=== PATIENT | male | born 1965 | race Caucasian/White ===

== ENCOUNTER → 2017-03-02 | Outpatient (CLI) | payer OTHER ==
[~2017-03-02] MED LIST: FURO-85 PO; METH10TA2 PO; OXYC-57 PO; OXYC10SO PO; POLY335019 PO; SPIR25TA PO; Toprol XL PO; WARF2TAB PO
--- NOTE | 2017-03-02 14:50 | DIAGNOSTIC IMAGING REPORT ---
RIGHT KNEE 4 OR MORE CLINICAL HISTORY: RIGHT KNEE PAIN Right pain COMPARISON: None. DISCUSSION: Moderate degenerative change of the medial joint compartments bilaterally. This is more prominent on the right as compared to the left. Potential small subchondral defect right medial femoral condyle. Moderate osteophytic change throughout. No significant joint effusion. There is no evidence for soft tissue swelling. IMPRESSION: Degenerative change primarily of the medial right and to lesser extent medial left joint compartment. Moderate degenerative osteophytic change throughout Electronically signed by: Julio Cesar Hughes M.D. 03/02/2017 2:48 PM Dictated Date/Time: 03/02/2017 2:47 PM
== END | disposition home or self-care (01) ==
LOC: C.RDSM 14:39
PROVIDERS: ATTEND Physician Assistant
DX: M25.561 Pain in right knee (principal)

== ENCOUNTER → 2017-03-19 | Outpatient (CLI) | payer OTHER ==
[~2017-03-19] MED LIST changes: -OXYC-57 PO
--- NOTE | 2017-03-20 14:54 | ECHOCARDIOGRAM REPORT ---
*NOTICE TO RECEIVING [employer]Y This information is strictly Confidential and protected under [place] law. [place] law prohibits you from making any further disclosure of this information unless further disclosure is expressly permitted by the written consent of the person to whom it pertains or is authorized by law. A general authorization for the release of medical or other information is not sufficient for this purpose. Hospital accepts no responsibility if the information is made available to any other person, INCLUDING THE PATIENT. Interpretation Summary * Name: RALYN BOYD Study Date: 03/19/2017 03:13 PM BP: 116/71 mmHg * Patient Location: [facility] HR: 70 * : 1965 (M/d/yyyy) Gender: Male Height: 67 in * Age: 52 yrs Ethnicity: CA Weight: 210 lb * Ordering Physician: Dulce Mahtias * Referring Physician: Dulce Mathias PA-C * Performed By: Bonita Boyd RCS * * Reason For Study: PRE-OP / A-FIB * BSA: 2.1 m2 * -- Conclusions -- * Left ventricular systolic function is normal. * No regional wall motion abnormalities noted. * Ejection Fraction = 55-60%. * There is mild concentric left ventricular hypertrophy. * Diastolic dysfunction is suggested. * No significant valvular pathology. Procedure Details * A complete two-dimensional transthoracic echocardiogram was performed (2D, M-mode, Doppler and color flow Doppler). Left Ventricle * The left ventricle is normal in size. * There is mild concentric left ventricular hypertrophy. * Ejection Fraction = 55-60%. * Left ventricular systolic function is normal. * No regional wall motion abnormalities noted. Right Ventricle * The right ventricle is not well visualized. * The right ventricular systolic function is normal as assessed by tricuspid annular plane systolic excursion (TAPSE) (normal >1.5 cm). Atria * The left atrium is mildly dilated. * Borderline right atrial enlargement. * No ASD detected; PFO is not assessed. Mitral Valve * The mitral valve anatomy is normal. * There is no mitral valve stenosis. * Significant mitral regurgitation is absent. Tricuspid Valve * The tricuspid valve is not well visualized, but is grossly normal. * There is no tricuspid stenosis. * There is trace tricuspid regurgitation. Aortic Valve * The aortic valve is not well visualized. * The aortic valve opens well. * No hemodynamically significant valvular aortic stenosis. * No aortic regurgitation is present. Pulmonic Valve * The pulmonary valve is not well seen, but the Doppler examination is normal without significant regurgitation or stenosis. Great Vessels * Mild aortic root dilatation. * The pulmonary is not well visualized. Pericardium/Pleural * There is no pericardial effusion. Great Vessels * Normal inferior vena cava size and collapsability with sniff indicates a normal right atrial pressure of 3 mmHg Left Ventricular Diastolic Function * Diastolic dysfunction is suggested. MMode 2D Measurements and Calculations IVSd 1.3 cm IVSs 1.5 cm LVIDd 4.0 cm LVIDs 2.7 cm LVPWd 1.2 cm LVPWs 1.3 cm IVS/LVPW 1.0 FS 31.5 % EDV(Teich) 69.2 ml ESV(Teich) 27.7 ml EF(Teich) 60.0 % EDV(cubed) 63.1 ml ESV(cubed) 20.3 ml EF(cubed) 67.9 % % IVS thick 21.0 % % LVPW thick 6.9 % LV mass(C)d 172.8 grams LV mass(C)dI 83.7 grams/m\S\2 LV mass(C)s 126.5 grams LV mass(C)sI 61.3 grams/m\S\2 SV(Teich) 41.5 ml SI(Teich) 20.1 ml/m\S\2 SV(cubed) 42.8 ml SI(cubed) 20.7 ml/m\S\2 Ao root diam 4.3 cm Ao root area 14.5 cm\S\2 ACS 2.3 cm LA dimension 3.8 cm LA/Ao 0.89 LVOT diam 2.1 cm LVOT area 3.3 cm\S\2 LVAd ap4 31.5 cm\S\2 LVLd ap4 8.3 cm EDV(MOD-sp4) 99.1 ml EDV(sp4-el) 101.5 ml LVAs ap4 17.4 cm\S\2 LVLs ap4 6.7 cm ESV(MOD-sp4) 40.7 ml ESV(sp4-el) 38.4 ml EF(MOD-sp4) 58.9 % EF(sp4-el) 62.1 % LVAd ap2 32.5 cm\S\2 LVLd ap2 8.6 cm EDV(MOD-sp2) 104.5 ml EDV(sp2-el) 104.9 ml LVAs ap2 15.2 cm\S\2 LVLs ap2 6.0 cm ESV(MOD-sp2) 34.4 ml ESV(sp2-el) 32.7 ml EF(MOD-sp2) 67.0 % EF(sp2-el) 68.8 % LVLd %diff 3.2 % EDV(MOD-bp) 103.7 ml LVLs %diff -11.85 % ESV(MOD-bp) 39.3 ml EF(MOD-bp) 62.1 % SV(MOD-sp4) 58.4 ml SI(MOD-sp4) 28.3 ml/m\S\2 SV(MOD-sp2) 70.0 ml SI(MOD-sp2) 33.9 ml/m\S\2 SV(MOD-bp) 64.4 ml SI(MOD-bp) 31.2 ml/m\S\2 SV(sp4-el) 63.1 ml SI(sp4-el) 30.6 ml/m\S\2 SV(sp2-el) 72.2 ml SI(sp2-el) 35.0 ml/m\S\2 Doppler Measurements and Calculations MV E max chaka 73.8 cm/sec MV A max chaka 48.8 cm/sec MV E/A 1.5 MV P1/2t max chaka 82.8 cm/sec MV P1/2t 79.5 msec MVA(P1/2t) 2.8 cm\S\2 MV dec slope 305.2 cm/sec\S\2 MV dec time 0.31 sec Ao V2 max 101.9 cm/sec Ao max PG 4.2 mmHg Ao max PG (full) 1.5 mmHg JING(V,A) 2.7 cm\S\2 JING(V,D) 2.7 cm\S\2 LV V1 max PG 2.7 mmHg LV V1 max 81.9 cm/sec PA V2 max 117.7 cm/sec PA max PG 5.5 mmHg TR max chaka 235.4 cm/sec
== END | disposition home or self-care (01) ==
LOC: C.CPL 14:58
PROVIDERS: ATTEND Physician Assistant
DX: I48.91 Unspecified atrial fibrillation (principal)

== ENCOUNTER → 2017-03-19 | Outpatient (CLI) | payer OTHER ==
--- NOTE | 2017-03-19 13:57 | DIAGNOSTIC IMAGING REPORT ---
RIGHT PELVIS UNI HIP 2-3 V CLINICAL HISTORY: Right hip pain COMPARISON: None. DISCUSSION: No acute fractures are visualized. There are no erosive or destructive changes. There is equivocal subtle right femoral head sclerosis. IMPRESSION: 1. No evidence of fracture 2. No significant joint space narrowing 3. Equivocal subtle right femoral head sclerosis Electronically signed by: Avila Morrison M.D. 03/19/2017 1:56 PM Dictated Date/Time: 03/19/2017 1:55 PM
== END | disposition home or self-care (01) ==
LOC: C.RDSM 13:40
PROVIDERS: ATTEND Physician Assistant
DX: M25.551 Pain in right hip (principal)

== ENCOUNTER → 2017-04-05 | Outpatient (CLI) | payer OTHER ==
--- NOTE | 2017-04-05 13:29 | DIAGNOSTIC IMAGING REPORT ---
RIGHT HIP 2 VIEWS CLINICAL HISTORY: Right hip pain. FINDINGS: AP and crosstable lateral views of the right hip are obtained. Comparison is made to study dated 03/19/2017 and correlation is made with MRI of the pelvis dated 02/28/2017. The skeletal structures are well mineralized. No fracture is seen. There is serpiginous appearing sclerotic change identified within the femoral head typical in appearance for avascular necrosis when correlated with the 02/28/2017 MRI. No subchondral collapse is identified. There is a mild degenerative joint space narrowing seen medially. Minimal degenerative sclerosis is seen in the right sacroiliac joint. The overlying soft tissues are within normal limits. IMPRESSION: 1. 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 2. No fracture is seen. Electronically signed by: Victor Hugo Amato M.D. 04/05/2017 1:28 PM Dictated Date/Time: 04/05/2017 1:23 PM
== END | disposition home or self-care (01) ==
LOC: C.RDSM 13:15
PROVIDERS: ATTEND Physician Assistant
DX: M25.551 Pain in right hip (principal)

== ENCOUNTER → 2017-05-14 | Outpatient (CLI) | payer OTHER | END | disposition home or self-care (01) | LOC: C.RDSM 14:25 | PROVIDERS: ATTEND Physical Medicine & Rehabilitation Sports Medicine | DX: M17.11 Unilateral primary osteoarthritis, right knee (principal) ==

== ENCOUNTER → 2017-08-13 | Outpatient (CLI) | payer OTHER | END | disposition home or self-care (01) | LOC: C.RDSM 13:37 | PROVIDERS: ATTEND Physical Medicine & Rehabilitation Sports Medicine | DX: M25.551 Pain in right hip (principal); Z96.651 Presence of right artificial knee joint ==

== ENCOUNTER → 2017-12-31 | Outpatient (CLI) | payer OTHER ==
[~2017-12-31] MED LIST changes: -WARF2TAB PO
--- NOTE | 2017-12-31 08:56 | DIAGNOSTIC IMAGING REPORT ---
R KNEE 3 VIEWS CLINICAL HISTORY: 52 years-old Male presenting with RIGHT KNEE PAIN B/L HIP PAIN. TECHNIQUE: Bilateral frontal view of the knees in standing position as well as bilateral sunrise views and crosstable lateral view of the right knee were obtained. COMPARISON: 05/14/2017. FINDINGS: Postsurgical changes of total right knee arthroplasty with patellar resurfacing as on prior exam. No hardware complication. No periprosthetic fracture. Moderate right knee joint effusion. Prominent enthesophyte at the insertion of the quadriceps tendon. Osteophyte noted at the inferior aspect of the patella at the patellofemoral articulation, which may be new from prior. Mild medial joint space narrowing of the left knee may be present. No advanced degenerative change. Slight lateral patellar subluxation in the left knee. IMPRESSION: 1. Possible interval development of an osteophyte at the inferior aspect of the right patella, which was not clearly visualized on prior exam. 2. Postsurgical changes of total right knee arthroplasty with patellar resurfacing. 3. Moderate right knee joint effusion. 4. Mild chronic changes in the left knee. Electronically signed by: Grabiel Jarvis M.D. 12/31/2017 8:55 AM Dictated Date/Time: 12/31/2017 8:52 AM
--- NOTE | 2017-12-31 09:08 | DIAGNOSTIC IMAGING REPORT ---
PELVIS ONE VIEW, RIGHT HIP 2 VIEWS HISTORY: Pelvis and right hip 08/13/2017. RIGHT KNEE PAIN B/L HIP PAIN COMPARISON: Pelvis and right hip 08/13/2017. FINDINGS: Progressive avascular necrosis within the right femoral head which demonstrates mild collapse. There is subtle subchondral sclerosis and lucency within the left femoral head also consistent with early avascular process. This is also slightly progressed. No dislocation. No left femoral head collapse. Soft tissues are unremarkable. No radiopaque foreign bodies. IMPRESSION: 1. Progressive right femoral head collapse due to the avascular necrosis. 2. Slight progression of the left femoral head avascular necrosis without collapse. Electronically signed by: Jerad Jimenez M.D. 12/31/2017 9:06 AM Dictated Date/Time: 12/31/2017 8:54 AM
== END | disposition home or self-care (01) ==
LOC: C.RDSM 08:45
PROVIDERS: ATTEND Physician Assistant
DX: M87.051 Idiopathic aseptic necrosis of right femur (principal); M87.052 Idiopathic aseptic necrosis of left femur; Z96.651 Presence of right artificial knee joint; M25.461 Effusion, right knee

== ENCOUNTER 2018-01-29 05:53 | Inpatient (IN) | payer OTHER ==
[2018-01-16 15:58] VITALS: BMI 35.0
--- NOTE | 2018-01-16 16:07 | PAT Medication Instructions ---
Service Date Jan 16, 2018. 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 Instructions For Your Scheduled Surgery - Check with surgeon and prescribing physician for instructions: Methadone Hcl (Dolophine), 40 MG PO TID - Continue as directed: Amoxicillin (Amoxil), 500 MG PO UD PRN for RN (Prior to dental procedures) - Hold the following medications 24 hours prior to surgery: [Voltaren Gel], 1 DOSE TOP QID PRN for RN - Hold the following medications the morning of surgery: Spironolactone (Aldactone), 50 MG PO Q2D Polyethylene Glycol 3350 (Miralax), 17 GM PO PRN Furosemide (Lasix), 40 MG PO Q2D - Take the following medications the morning of surgery with a sip of water: Oxycodone Oral Soln (Roxicodone Oral Soln), 10 ML PO Q2H PRN for Pain (okay to take up to 4 hours prior to surgery if needed) - Take the following medications as scheduled the night before surgery: [Toprol XL], 12.5 MG PO HS Polyethylene Glycol 3350 (Miralax), 17 GM PO PRN (if needed) Oxycodone Oral Soln (Roxicodone Oral Soln), 10 ML PO Q2H PRN for Pain (if needed ) If you have any questions please call us at [phone] or [phone] or [phone]
[2018-01-16 16:26] LABS: BASO % 0.5 %; BASO ABS # 0.04 K/uL (0-0.2); EOS % 2.7 %; EOS ABS # 0.22 K/uL (0-0.5); HEMATOCRIT 40.2 % (42-52); HEMOGLOBIN 13.6 g/dL (14.0-18.0); IG# 0.03 K/uL (0.00-0.02); LYMPH % 32.3 %; LYMPH ABS # 2.59 K/uL (1.2-3.4); MEAN CELL VOLUME 84.5 fL (80-100); MEAN CORPUSCULAR HEMOGLOBIN 28.6 pg (25-34); MEAN CORPUSCULAR HGB CONC 33.8 g/dl (32-36); MEAN PLATELET VOLUME 8.5 fL (7.4-10.4); MONO % 15.7 %; MONO ABS # 1.26 K/uL (0.11-0.59); NEUT % 48.4 %; NEUT ABS # 3.87 K/uL (1.4-6.5); PLATELET COUNT 264 K/uL (130-400); RED CELL DISTRIBUTION WIDTH CV 13.7 % (11.5-14.5); RED CELL DISTRIBUTION WIDTH SD 42.4 fL (36.4-46.3); WHITE BLOOD COUNT 8.01 K/uL (4.8-10.8)
[2018-01-16 16:42] LABS: CALCIUM 8.8 mg/dl (8.5-10.1); CREATININE 1.04 mg/dl (0.60-1.40); POTASSIUM 5.1 mmol/L (3.5-5.1); PTT PATIENT 27.6 SECONDS (21.0-31.0)
--- NOTE | 2018-01-17 11:45 | History and Physical ---
History & Physical Date & Time of Service: Jan 17, 2018 at 11:21 Chief Complaint: Right Hip Degenerative Joint Disease W/Avascular N Primary Care Physician: Maribell Montalvo D.O. History of Present Illness Source: patient This 52-year-old white male presents with his today for evaluation of right hip. He has had right hip pain for many months. It has recently progressively worsened. He denies any known injury. He has constant pain of his right hip that is worse with ambulation, sitting, standing, going up and down steps, any type of movement. It affects his activities of daily living every day. He has increased pain with range of motion. It does cause him to limp. Does not often uses an assistive device but occasionally does use a cane if necessary. X-rays of his pelvis and right hip were taken and show degenerative joint disease of his right hip with evidence of avascular necrosis and bone on bone. He is on chronic pain medication which includes methadone and Roxanol due to history of previous chordoma carcinoma. He states that he still has pain through his chronic regular medications. Due to his failure of conservative treatment which has included rest, ice, heat and NSAIDs he wishes to proceed with surgery. Surgical intervention was discussed. Risks and complications were discussed. He agreed to proceed and is scheduled for elective right total hip arthroplasty by Dr. Mccallum on January 29, 2018 at [facility]. Past Medical/Surgical History 1. Chordoma carcinoma 2. Previous history of stroke 3. Possible history cardiac arrest 2 during general anesthesia 4. Chronic oxygen use - at home he uses 3.5 continuous liters especially at night. He does not always wear it when he is away from home 5. Paroxysmal atrial fibrillation associated with general anesthesia 6. Chronic pain Past surgical history: 1. Sacral resection for chordoma in October 2010 2. Additional sacral resection with bladder surgery and rectal surgery in March 2012 which then required muscle and skin flap coverage for his sacrum and march. 3. Right total knee arthroplasty 4. Left knee arthroplasty in 1984 Family History Unknown, the patient is adopted. Social History Smoking Status: Never Smoker Smokeless Tobacco Use: No Alcohol Use: none Marital Status: Housing status: lives with family Occupational Status: unemployed Immunizations History of Influenza Vaccine: No History of Tetanus Vaccine?: Yes Tetanus Immunization Date: Sep 10, 2010 History of Pneumococcal: No History of Hepatitis B Vaccine: No Allergies Coded Allergies: Oxycodone (Verified Allergy, Mild, SEVERE HALLUCINATIONS, 01/16/18) PT CAN TAKE OTHER CODONES Home Medications Scheduled Furosemide (Lasix), 40 MG PO Q2D Methadone Hcl (Dolophine), 40 MG PO TID Polyethylene Glycol 3350 (Miralax), 17 GM PO PRN Spironolactone (Aldactone), 50 MG PO Q2D [Toprol XL], 12.5 MG PO HS Scheduled PRN Amoxicillin (Amoxil), 500 MG PO UD PRN for RN Oxycodone Oral Soln (Roxicodone Oral Soln), 10 ML PO Q2H PRN for Pain [Voltaren Gel], 1 DOSE 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 of Systems Constitutional: + fatigue, No fever, No chills, No sweats, No weight loss Eyes: No worsening of vision, No redness ENT: + hearing loss (lessened in right ear due to cerumen), No sore throat, No tinnitus, No dental problems Respiratory: + shortness of breath (nothing more than usual), + dyspnea on exertion, + dyspnea at rest (uses O2 3.5 Liters at night), No cough, No sputum, No wheezing Cardiovascular: No chest pain, No edema, No palpitations Abdomen: No pain, No nausea, No vomiting, No diarrhea, No constipation Musculoskeletal: + joint pain (right hip), No swelling, No calf pain Genitourinary - Male: No hematuria, No dysuria, No urinary frequency, No urinary urgency, No urinary hesitancy, No urinary retention, No urinary incontinence Neurologic: No memory loss, No numbness/tingling Hematologic / Lymphatic: No abnormal bleeding/bruising, No clotting problems Integumentary: No rash, No itch Allergic / Immunologic: No frequent infections, No poor healing Physical Exam General Appearance: WD/WN, no apparent distress Head: normocephalic, atraumatic Eyes: normal inspection, PERRL, EOMI, sclerae normal ENT: normal ENT inspection, hearing grossly normal, TMs normal, pharynx normal Neck: supple, no adenopathy, thyroid normal, no carotid bruits, trachea midline Respiratory/Chest: chest non-tender, lungs clear, normal breath sounds, no respiratory distress, no accessory muscle use Cardiovascular: regular rate, rhythm, no edema, no murmur, normal peripheral pulses Abdomen/GI: normal bowel sounds, non tender, soft Extremities/Musculoskelatal: no calf tenderness, normal capillary refill, no pedal edema, + pertinent finding (Pain with range of motion of his right hip today. He has limited internal rotation of only about 10 before there is a firm block. Excellent rotation around 30. He describes groin pain with passive and active hip flexion. Skin is intact around the right hip. Nonspecifically tender with papation of his right hip or trochanteric bursa. ) Neurologic/Psych: no motor/sensory deficits, alert, normal mood/affect, normal reflexes, oriented x 3 Skin: normal color, warm/dry, no rash Diagnostics Laboratory Results Results Past 24 Hours Test 01/16/18 15:46 Range/Units White Blood Count 8.01 4.8-10.8 K/uL Red Blood Count 4.76 4.7-6.1 M/uL Hemoglobin 13.6 14.0-18.0 g/dL Hematocrit 40.2 42-52 % Mean Corpuscular Volume 84.5 80-100 fL Mean Corpuscular Hemoglobin 28.6 25-34 pg Mean Corpuscular Hemoglobin Concent 33.8 32-36 g/dl Platelet Count 264 130-400 K/uL Mean Platelet Volume 8.5 7.4-10.4 fL Neutrophils (%) (Auto) 48.4 % Lymphocytes (%) (Auto) 32.3 % Monocytes (%) (Auto) 15.7 % Eosinophils (%) (Auto) 2.7 % Basophils (%) (Auto) 0.5 % Neutrophils # (Auto) 3.87 1.4-6.5 K/uL Lymphocytes # (Auto) 2.59 1.2-3.4 K/uL Monocytes # (Auto) 1.26 0.11-0.59 K/uL Eosinophils # (Auto) 0.22 0-0.5 K/uL Basophils # (Auto) 0.04 0-0.2 K/uL RDW Standard Deviation 42.4 36.4-46.3 fL RDW Coefficient of Variation 13.7 11.5-14.5 % Immature Granulocyte % (Auto) 0.4 % Immature Granulocyte # (Auto) 0.03 0.00-0.02 K/uL Prothrombin Time 10.3 9.0-12.0 SECONDS Prothromb Time International Ratio 1.0 0.9-1.1 Activated Partial Thromboplast Time 27.6 21.0-31.0 SECONDS Partial Thromboplastin Ratio 1.1 Urine Color YELLOW Urine Appearance CLEAR CLEAR Urine pH 6.5 4.5-7.5 Urine Specific [place] 1.022 1.000-1.030 Urine Protein NEG NEG Urine Glucose (UA) NEG NEG Urine Ketones NEG NEG Urine Occult Blood NEG NEG Urine Nitrite NEG NEG Urine Bilirubin NEG NEG Urine Urobilinogen NEG NEG Urine Leukocyte Esterase NEG NEG Sodium Level 134 136-145 mmol/L Potassium Level 5.1 3.5-5.1 mmol/L Chloride Level 101 98-107 mmol/L Carbon Dioxide Level 29 21-32 mmol/L Anion Gap 3.0 3-11 mmol/L Blood Urea Nitrogen 19 7-18 mg/dl Creatinine 1.04 0.60-1.40 mg/dl Est Creatinine Clear Calc Drug Dose 95.9 ml/min Estimated GFR () 94.6 Estimated GFR (Non- 81.6 BUN/Creatinine Ratio 18.0 10-20 Random Glucose 93 70-99 mg/dl Calcium Level 8.8 8.5-10.1 mg/dl Diagnostic Radiology AP pelvis, lateral right hip advanced DJD of his right hip with evidence of AVN right femoral head. There is femoral head collapse. Periarticular osteophytes and joint space loss is noted. CXR normal Normal EKG Impression Assessment and Plan Assessment: Right hip DJD with AVN Plan: The patient will be admitted to [facility] January 29, 2018 to undergo an elective right total hip arthroplasty. Risks and complications of surgery were explained to the patient and include but are not limited to infection, pain, bleeding, scarring, nerve and blood vessel damage, wound problems, weakness, stiffness, incomplete relief of symptoms, leg length discrepancy, dislocation, hardware loosening, hardware wearing, fracture, blood clots, embolisms, heart attack, stroke and . Informed consent will be obtained by Dr. Mccallum on the day of surgery. He will have preadmission testing in which he will obtain a preoperative CBC, BMP, PT, PTT and urinalysis. He will have preoperative medical clearance by his family physician Dr. Bret Montalvo. He would like to go home with [facility] as he did previously with his right total knee replacement. Preoperative referral has been made. He was instructed on the usage of CHG cloths. He does have a walker at home. All questions were answered today. He has call with any further problems, questions or concerns. His was present for today's visit. He does not need a new EKG or chest x-ray As they have been done in the appropriate timeframe. He will follow-up with [facility] orthopedics 10-14 days after surgery for Staple removal. Advanced Directives Existing Living Will: Yes Existing Power of Occ Therapist: Yes Resuscitation Status VTE Prophylaxis Will order VTE Prophylaxis: Yes
[2018-01-29] VITALS (10 sets, daily range): BP systolic 111–167; BP diastolic 61–92; PULSE 80–110; TEMP 36.2–37.1; O2SAT 94–99; Ht 172.7 cm; Wt 103.7 kg
[~2018-01-29] VITALS: Ht 172.7 cm; Wt 103.7 kg
[~2018-01-29 05:53] MED LIST changes: +AMOX500C3 PO; +VOLTAREN GEL TOP
[2018-01-29] MEDS ORDERED: LACTATED RINGER'S 1000ML 1,000 ML IV SCH (06:00)
[2018-01-29] MEDS ORDERED: TRANEXAMIC ACID INJ 1,000 MG x 1 Bag Preop IV SCH ×2 (06:00)
[2018-01-29] MEDS ORDERED: LACTATED RINGER'S 1000ML 500 ML IV SCH (06:00)
[2018-01-29] MEDS ORDERED: CEFAZOLIN 2000MG IV PUSH 15 ML IV SCH (06:00)
[2018-01-29] MEDS ORDERED: ROPIVACAINE 5MG/ML 30 ML 150 MG, BUPIVACAINE/EPINEPHR 0.5% MPF 30 ML, KETOROLAC TROMETH... INFIL SCH ×7 (06:00)
[2018-01-29] MEDS ORDERED: LACTATED RINGER'S 1000ML IV SCH (06:00)
--- NOTE | 2018-01-29 06:18 | History & Physical Bridge Note ---
H&P Re-Evaluation Bridge Note: I have examined the patient, reviewed the History & Physical and in the interval since the performance of the History & Physical I have noted the following changes of clinical significance: consent obtained.all questions answered.No changes noted
[2018-01-29] MEDS ORDERED: OXYC1TAB3 PO (06:23)
[2018-01-29] MEDS ORDERED: BUPIVACAINE 0.5 % 5 MG/1 ML PF 10ML VIAL ONE (06:28)
[2018-01-29] MEDS ORDERED: PROPOFOL IV EMULSION 10 MG/ML 20 ML VIAL IV ONE (06:37)
[2018-01-29] MEDS ORDERED: LIDOCAINE HCL 2% 2 ML VIAL (20MG/ML) ONE (06:37)
[2018-01-29] MEDS ORDERED: MIDAZOLAM HCL 1 MG/ML 2ML VIAL ONE ×2 (06:38→06:39)
[2018-01-29] MEDS ORDERED: FENTANYL CITRATE INJ 50 MCG/1 ML 2 ML VIAL ONE (06:38)
[2018-01-29] MEDS ORDERED: POVIDONE-IODINE OP SOLN 30 ML BTL ONE (07:05)
[2018-01-29] MEDS ORDERED: ORTHO JOINT ANESTHETIC ONE (07:05)
[2018-01-29] MEDS: TRANEXAMIC ACID INJ 1,000 MG x 1 Bag Preop TOP SCH ×4 (07:48→09:00)
[2018-01-29] MEDS ORDERED: ONDANSETRON INJ 2 MG/ML 2 ML VIAL IV PRN ×2 (08:30→09:45)
[2018-01-29] MEDS ORDERED: PHENYLEPHRINE 100MCG/ML 5ML SYR IV PRN (08:30)
[2018-01-29] MEDS ORDERED: HYDROmorphone INJ 2 MG/ML SYR/VIAL IV PRN (08:30)
[2018-01-29] MEDS ORDERED: ATROPINE SULFATE 0.1 MG/ML 5ML SYR IV PRN (08:30)
[2018-01-29] MEDS ORDERED: EpHEDrine SULFATE INJ 50 MG/ML AMP IV PRN (08:30)
--- NOTE | 2018-01-29 09:35 | [facility] Post Operative Brief Note ---
Immediate Operative Summary Operative Date Jan 29, 2018. Pre-Operative Diagnosis Right Hip Advanced Degenerative Joint Disease with Avascular Necrosis Post-Operative Diagnosis Right Hip Advanced Degenerative Joint Disease with Avascular Necrosis Procedure(s) Performed Right Total Hip Arthroplasty--Uncemented Surgeon Dr. Mccallum Electrical Assistant Surgeon(s) Dr. Nevarez (Fellow)/ANAHI Palomo Estimated Blood Loss 100ML Findings Consistent with Post-Op Diagnosis Fluids (cc crystalloids) 1500cc Specimens A. Right Femoral Head Drains None Anesthesia Type Spinal MAC Complication(s) none Disposition Accompanied Pt To Recover: no Disposition: Recovery Room / PACU
[2018-01-29] MEDS ORDERED: TAMSULOSIN HCL 0.4 MG CAP PO PRN (09:45)
[2018-01-29] MEDS ORDERED: ALUMINUM/MAGNESIUM/SIMETH (MAALOX MAX) 30 ML UDC PO PRN (09:45)
[2018-01-29] MEDS ORDERED: METOCLOPRAMIDE HCL INJ 5 MG/ML 2 ML VIAL IV PRN (09:45)
[2018-01-29] MEDS ORDERED: BISACODYL 10 MG SUPP PR PRN (09:45)
[2018-01-29] MEDS ORDERED: MoRPHine SULFATE 2 MG/ML CARP IV PRN ×2 (09:45→11:15)
[2018-01-29] MEDS ORDERED: MAGNESIUM HYDROXIDE SUSP 30 ML UDC PO PRN (09:45)
--- NOTE | 2018-01-29 09:52 | [facility] Operative Report ---
Operative Report Operative Date Jan 29, 2018. Pre-Operative Diagnosis Right Hip Advanced Degenerative Joint Disease with Avascular Necrosis Post-Operative Diagnosis Right Hip Advanced Degenerative Joint Disease with Avascular Necrosis Procedure(s) Performed Right Total Hip Arthroplasty--Uncemented Surgeon Dr. Mccallum Capital Equipment Specialist Surgeon(s) Dr. Nevarez (Fellow)/ANAHI Bustos Estimated Blood Loss 100ML Findings Right hip AVN and DJD Fluids 1500cc Specimens A. Right Femoral Head Drains None Anesthesia Type Spinal MAC Complication(s) none Disposition no Recovery Room / PACU Indications This 52-year-old white male presented to the office complaints of intractable right hip pain. It was affecting his ADLs. He had tried conservative care measures without improvement. He elected to proceed with surgical intervention after being educated about potential risks and outcomes. Preoperative imaging was obtained. Description of Procedure Patient was administered spinal anesthetic and then taken to the operating room where he was given sedation. He was prepped and draped in usual sterile fashion. Please see Dr. Mccallum's operative report for specifics of the procedure. I was present for the entire case from initial patient positioning through final wound closure. Assistance was provided in tissue retraction, hemostasis, trial implant placement, final implant placement, and final wound closure. Patient was taken to the recovery room in satisfactory condition. I attest to the content of the Intraoperative Record and any orders documented therein. Any exceptions are noted below.
--- NOTE | 2018-01-29 09:55 | OPERATIVE REPORT ---
DATE OF OPERATION: 01/29/2018 SURGEON: Beau Mccallum MD. SAP SENIOR DEVELOPER: Roque. SECOND SAP SENIOR DEVELOPER: Alexander Lovett PA-C. PREOPERATIVE DIAGNOSIS: Avascular necrosis osteoarthritis, right hip with collapse. POSTOPERATIVE DIAGNOSIS: Same. OPERATION PERFORMED: Noncemented right total hip replacement. SUMMARY OF IMPLANTS: Size 50 acetabular shell sector cup hole eliminator, cancellous screw 6.5 x 30, acetabular liner 32 x 50 neutral liner, femoral stem size 2 Tri-Lock high offset Articul/Ramesh femoral head +5, 32. 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 He has significant collapse and pain. At this point in time, he is requesting total hip replacement secondary to his discomfort. He did have a posterior flap procedure. This was consulted with the plastics preoperatively and they said that we were okay with our incision placement. The patient was cleared for surgery as well medically. DESCRIPTION OF THE PROCEDURE: The patient was properly identified, site verified, consent verified, 2 grams of Ancef confirmed as being given. The right lower extremity was prepped and draped in the usual routine fashion. The old incision from his flaps were identified. We tried to stay away from as much as possible just slightly got toward apex. The incision was then made. Sharp dissection carried down to the fascia. The thermal cautery used to control the bleeding, it was minimal. The fascia was then incised. Retractors were then placed. Care taken to protect the sciatic nerve. Short external rotators released. The capsule was T'd. The hip was dislocated. Femoral neck was resected. There was a 3 x 3 cm area of collapse of the complete loose subchondral bone. The pulvinar was debrided from the hip as well as the labrum. Serial reaming carried up to a 50 and a 50 cup impacted into appropriate inclination and anteversion with excellent press fit. A 6.5 x 30 screw was placed with excellent fixation. Trial liner was seated. The femur was then flexed and internally rotated and proximal femur prepared with a box shook patcher The canal finder, the lateralizing rasp, and serial broaching up to size 2. A size 2 trial was seated in between a +5 and plus +9 was extremely stable. The hip was then dislocated. All the remaining trial elements were removed. The area was irrigated with Betadine, Pulsavac, hole eliminator seated, permanent liner seated, permanent stem seated. It was approximately 2-3 mm prouder than that the trial stem, so it was elected to go with the +5 rather than the +9 head to balance out the leg lengths. This was carried out. The hip was stable in maximum flexion, internal rotation, adduction and extension and external rotation. Leg lengths were within millimeters of equality. The wound was then irrigated with Betadine Pulsavac and then closed. The short external rotators and the capsule with #2 Vicryl, the deep fascia with #2 Vicryl, the subcutaneous layer with 2-0 Vicryl and the skin with stainless steel clips. Appropriate dressing applied. The patient transferred to recovery room in satisfactory condition having tolerated the procedure well. Pathology pending on the femoral head with the AVN. Estimated blood loss was 100 mL. Crystalloid, 1500 mL. Implants as noted above. DVT prophylaxis with Coumadin. I attest to the content of the Intraoperative Record and any orders documented therein. Any exception s are noted below.
--- NOTE | 2018-01-29 10:16 | Anesthesiology Progress Note ---
Anesthesia Post Op Note Date & Time Jan 29, 2018 at 10:16 Vital Signs Pain Intensity: 0 Vital Signs Past 12 Hours Date Time Temp Pulse Resp B/P (MAP) Pulse Ox O2 Delivery O2 Flow Rate FiO2 01/29/18 10:11 114/68 01/29/18 10:09 80 13 01/29/18 10:09 79 13 96 01/29/18 10:06 107/74 01/29/18 10:04 82 19 01/29/18 10:04 81 19 98 01/29/18 10:01 109/69 01/29/18 10:00 83 14 109/69 (73) 99 Oxymask 10 01/29/18 09:59 85 10 01/29/18 09:59 85 10 97 01/29/18 09:56 117/70 01/29/18 09:54 85 17 01/29/18 09:54 85 17 99 01/29/18 09:51 123/75 01/29/18 09:50 85 10 123/75 (83) 98 Oxymask 10 01/29/18 09:49 88 12 01/29/18 09:49 89 12 99 01/29/18 09:46 129/77 01/29/18 09:45 117/71 01/29/18 09:44 88 95 01/29/18 09:44 88 01/29/18 09:44 37.0 88 10 117/71 (83) 95 Oxymask 10 01/29/18 06:25 37.1 110 18 167/92 95 Room Air Notes Mental Status: alert / awake / arousable, participated in evaluation Pt Amnestic to Procedure: Yes Nausea / Vomiting: adequately controlled Pain: adequately controlled Airway Patency, RR, SpO2: stable & adequate BP & HR: stable & adequate Hydration State: stable & adequate Neuraxial Anesthesia: was administered, sensory block is resolving Anesthetic Complications: no major complications apparent
--- NOTE | 2018-01-29 10:41 | DIAGNOSTIC IMAGING REPORT ---
PELVIS 1 OR 2 VIEW ROUTINE CLINICAL HISTORY: s/p right SHARDA hip replacement COMPARISON: 09/19/2010 DISCUSSION: Placement of a total right hip arthroplasty. Good contact between prosthetic and underlying bone. Expected postoperative soft tissue change. IMPRESSION: Anatomic alignment posttotal right hip arthroplasty. The above report was generated using voice recognition software. It may contain grammatical, syntax or spelling errors. Electronically signed by: Julio Cesar Hughes M.D. 01/29/2018 10:39 AM Dictated Date/Time: 01/29/2018 10:39 AM
[2018-01-29] MEDS ORDERED: MoRPHine SULFATE 4 MG/ML 1 ML CARP\\VIAL IV PRN (11:15)
[2018-01-29] MEDS: KETOROLAC TROMETHAMINE 30 MG/ML VIAL IV. SCH ×3 (12:24→23:44)
[2018-01-29] MEDS: ACETAMINOPHEN 500 MG TAB PO SCH ×2 (12:24→21:38)
[2018-01-29] MEDS: FERROUS GLUCONATE 324 MG TAB PO SCH ×2 (12:25→17:53)
[2018-01-29] MEDS ORDERED: FUROSEMIDE 40 MG TAB PO SCH (12:30)
--- NOTE | 2018-01-29 12:47 | Progress Note ---
Progress Note Date of Service Jan 29, 2018. Progress Note Postop check status post right total hip replacement. Patient is sitting up eating. He notes that his feeling in his feet has recurred. He can wiggle his toes and ankles. He can extend his knee. He is requesting his methadone. Vital signs are stable he is afebrile. Neurovascular check from a sciatic nerve is normal. Postop x-ray looks excellent. Assessment doing well status post right total replacement will adjust pain management. Placed on methadone 40 mg p.o. every 8 hours as needed use of Aloxi following that for breakthrough pain discontinue all other narcotics. Use Tylenol p.o. and IV. Will use Toradol IV. Mobilize out of bed. director patient financial services to see MARI. Set up for home nursing and home PT. Dictated not read.
[2018-01-29] MEDS: METHADONE HCL 10 MG TAB PO SCH ×2 (14:24→20:45)
[2018-01-29] MEDS: CEFAZOLIN IV 2,000 MG in SYRINGE 0 ML IV SCH ×2 (15:29→23:42)
[2018-01-29] MEDS ORDERED: WARFARIN SOD 5 MG TAB PO ONE (16:00)
[2018-01-29] MEDS ORDERED: WARF2TAB PO (18:04)
[2018-01-29] MEDS: OXYCODONE HCL IR 5 MG TAB (IMMEDIATE RELEASE) PO PRN (18:22)
[2018-01-29] MEDS: DOCUSATE SODIUM 100 MG CAP PO SCH (20:45)
[2018-01-29] MEDS ORDERED: SENNA 8.6 MG TAB PO SCH (21:00)
[2018-01-30 03:45] VITALS: BP 112/74; PULSE 82; TEMP 36.4; O2SAT 95
[2018-01-30] MEDS: OXYCODONE HCL IR 5 MG TAB (IMMEDIATE RELEASE) PO PRN ×2 (04:31→15:14)
[2018-01-30] MEDS: KETOROLAC TROMETHAMINE 30 MG/ML VIAL IV. SCH ×2 (05:38→11:55)
[2018-01-30] MEDS: ACETAMINOPHEN 500 MG TAB PO SCH ×2 (05:38→13:56)
[2018-01-30 06:20] LABS: BASO % 0.1 %; BASO ABS # 0.01 K/uL (0-0.2); EOS % 0.3 %; EOS ABS # 0.04 K/uL (0-0.5); HEMATOCRIT 38.2 % (42-52); HEMOGLOBIN 12.9 g/dL (14.0-18.0); IG# 0.04 K/uL (0.00-0.02); LYMPH % 16.9 %; LYMPH ABS # 2.08 K/uL (1.2-3.4); MEAN CELL VOLUME 84.9 fL (80-100); MEAN CORPUSCULAR HEMOGLOBIN 28.7 pg (25-34); MEAN CORPUSCULAR HGB CONC 33.8 g/dl (32-36); MEAN PLATELET VOLUME 8.7 fL (7.4-10.4); MONO % 15.5 %; MONO ABS # 1.91 K/uL (0.11-0.59); NEUT % 66.9 %; NEUT ABS # 8.22 K/uL (1.4-6.5); PLATELET COUNT 213 K/uL (130-400); RED CELL DISTRIBUTION WIDTH CV 13.7 % (11.5-14.5); RED CELL DISTRIBUTION WIDTH SD 42.2 fL (36.4-46.3)
[2018-01-30 06:34] LABS: CALCIUM 8.4 mg/dl (8.5-10.1); CREATININE 0.97 mg/dl (0.60-1.40); POTASSIUM 4.5 mmol/L (3.5-5.1)
--- NOTE | 2018-01-30 06:55 | PROGRESS NOTE ---
DATE: 01/30/2018 SUBJECTIVE: Postop day #1 status post right total hip replacement for AVN and DJD. The patient did well and was able to get up and walk around. His pain is well managed. He denies any chest pain, shortness of breath, fever, chills, nausea, vomiting or headache. OBJECTIVE: Vital signs are stable. He is afebrile. Neurovascular check femoral sciatic nerve is good. Hip located. Calves nontender. DATA: Hematocrit stable at 38.2. INR is 1.0. Chemistry looks good. ASSESSMENT: Doing well. PLAN AND RECOMMENDATIONS: Continue with care pathway. Discharge after PT, OT, sometime early this afternoon can leave. Discharged on 4 mg of Coumadin daily, keep INR 1.8-2.2. Pain management for his chronic pain problem from his chordoma. No additional meds. Only new medication will be Coumadin 1.8-2.2 range. Discharged on 4 mg. MTDD
--- NOTE | 2018-01-30 06:58 | DISCHARGE SUMMARY ---
CHIEF COMPLAINT: Right hip pain with AVN and DJD. HISTORY OF PRESENT ILLNESS: A 52-year-old male who is admitted for AVN with significant collapse and secondary degenerative disease who has marked hip pain. His history is complicated by chordoma and multiple surgeries. He has chronic back pain and leg pain from that. He also had a previous knee replacement. HOSPITAL COURSE: Hospital course has been on the phone with his hip replacement. PAST MEDICAL AND SURGICAL HISTORY: Remarkable for chordoma, history of stroke, history of cardiac arrest, history of chronic oxygen use, paroxysmal atrial fibrillation, chronic pain. PAST SURGICAL HISTORY: Remarkable for sacral resection surgery, multiple procedures. Bladder and rectal surgery, skin flap coverage. Total knee arthroplasty. FAMILY HISTORY: Unknown. He is adopted. SOCIAL HISTORY: Reveals no tobacco use. , lives with family. Unemployed. IMMUNIZATIONS: As noted did not have influenza. Tetanus is up-to-date. No pneumococcal. ALLERGIES: OXYCODONE WHICH GIVES HIM HALLUCINATION; HOME MEDICATIONS: Include furosemide, methadone, polyethylene glycol, spironolactone, Toprol. He will continue all those, add no new pain medications. Add Coumadin to keep INR 1.8-2.2. Discharge on 4 mg. Check INR on Sunday. REVIEW OF SYSTEMS: Noncontributory. ASSESSMENT: Status post total hip replacement, right. PLAN AND RECOMMENDATIONS: The patient is doing well, will discharge after appropriate PT, OT sessions today. I will place Prevena wound VAC on. MTDD
[2018-01-30] MEDS ORDERED: DEXAMETHASONE INJ 10 MG in SYRINGE 0 ML IV ONE (07:30)
[2018-01-30 07:36] VITALS: BP 136/82; PULSE 75; TEMP 36.5; O2SAT 94
[2018-01-30 08:26] VITALS: O2SAT 94
[2018-01-30] MEDS: METHADONE HCL 10 MG TAB PO SCH ×2 (08:53→13:56)
[2018-01-30] MEDS: FERROUS GLUCONATE 324 MG TAB PO SCH ×2 (08:53→13:06)
[2018-01-30] MEDS: DOCUSATE SODIUM 100 MG CAP PO SCH (08:54)
[2018-01-30] MEDS ORDERED: MULTIVITAMIN TAB PO SCH (09:00)
[2018-01-30] MEDS ORDERED: PANTOprazole SOD 40 MG TAB PO SCH (09:00)
[2018-01-30] MEDS ORDERED: SPIRONOLACTONE 25 MG TAB PO SCH (09:00)
[2018-01-30 11:47] VITALS: BP 132/78; PULSE 72; TEMP 36.4; O2SAT 93
[2018-01-30] MEDS ORDERED: WARFARIN SOD 5 MG TAB PO SCH (12:00)
--- NOTE | 2018-01-30 16:09 | Discharge Instructions ---
Discharge Instructions Date of Service Jan 29, 2018. Admission Reason for Admission: Right Hip Degenerative Joint Disease W/Avascular N Discharge Discharge Diagnosis / Problem: Righ hip s/p total hip replacement Discharge Goals Goal(s): Decrease discomfort, Improve function, Increase independence Activity Recommendations Activity Limitations: as noted below Lifting Limitations: gradually increase as tolerated Exercise/Sports Limitations: until after follow-up appointment Shower/Bathe: keep incision dry Driving or Machine Use: No driving until cleared by Dr. Mccallum Weightbearing Status: Right weightbearing (as tolerated) . Instructions / Follow-Up Instructions / Follow-Up New Medicine: * You will likely be taking one or more of these medicines: 1. Percocet - Take, as directed, when you need it, every four to six hours to control your pain. 2. Coumadin - Thins your blood to lessen the chance of forming a blood clot. The dose of this is different for each person and is based on your blood tests that are done twice a week. * The most common side effects of pain medicine and iron are nausea and constipation. If nausea or constipation is too much of a problem or if you have any questions about your new medicines or doses, call [facility] at . We will try to help you manage these issues. VERY IMPORTANT TO READ AND REVIEW" Blood Clots and Blood Thinning Medicine: * You are given Coumadin during the immediate post-operative period to lessen the risk of blood clots forming in your legs and/or lungs. Coumadin is usually given for six weeks after surgery. * The prescription is for 2 mg tablets. At discharge, you should understand your dose and take it all at the same time every day, preferably after dinner. * You need to get your blood checked 1 - 2 times per week for six weeks, or as directed. * If your dose needs to change, we will call you. Do not take your medication on the day of the blood test until we call you. * If you don't hear from us after your blood draws, keep taking the same dose. Pain: * The immediate post-operative period after hip replacement surgery is often quite painful. * You are given a prescription for pain medicine. You should take it, as directed, when you need it, especially before physical therapy and before going to bed. Pain that interferes with sleep is very common and can last several months. * You will likely need pain medicine for the first two to four weeks. It will not stop all of the pain. The pain will lessen and as you feel better, you may change to milder pain medicine such as Tylenol. * The most common side effects of pain medicine are nausea and constipation, so don't take more than you need. Physical Therapy: * Follow the "Hip Precautions Instructions." * In some cases, the social contact worker at the hospital will arrange to have a therapist come to your house for the first couple of weeks to help you learn these skills. * You need to practice on your own or with the help of a family member as needed. * When you learn these skills, most of the therapy can be done on your own. Home Exercise: * You were shown a series of exercises in the hospital. Do these exercises three to four times each day including the exercises you were shown in physical therapy. Walking: * Get up and walk several times each day. For the first four weeks, try not to stand or walk for more than one hour at a time. If you do stand or walk for more than one hour, you will not hurt anything, but your leg will likely swell. * As you feel comfortable, you may change from the walker or crutches to a cane and then to independent walking. SELF CARE INSTRUCTIONS AFTER TOTAL HIP REPLACEMENT Until the incision and soft tissues around your hip have healed, there is a possibility that the hip prosthesis could dislocate. A. Observe the following precautions to prevent dislocation: 1. Don't bend your hip greater than 90 degrees. 2. Avoid crossing your legs or ankles while standing or lying. 3. Sit with your feet placed 6 inches apart. 4. When sitting, keep your knees below your hips. Sit on a firm surface, avoid deep, soft chairs and couches. Use an elevated toilet seat in the bathroom. 5. Don't bend over at the waist. Use a long handled shoehorn and a sock aid to help you put on your shoes and socks. A nursery supervisor can help you lemon picker objects that are too high or too low to reach. 6. Keep car riding to a minimum for at least one month after surgery. B. Your balance may be shaky for a while. Use crutches or a walker until directed by your doctor. C. Use hand rails when walking on stairs. D. Wear low heeled shoes with non-slip soles. E. Be sure that your floors are free of things that could trip you - throw rugs , electrical cords, small objects. Avoid wet and waxed floors, especially with crutches and canes. F. Try to walk several times a day with rest periods between. G. Continue with all the exercises taught to you in the hospital. Again, make walking a part of your daily routine. VERY IMPORTANT TO READ AND REVIEW A. Take Coumadin, or Lovenox (blood thinning medications) as directed by your doctor. If you are on Coumadin, have a pro-time (blood test) drawn according to your doctor's instructions. This will tell the doctor how well the Coumadin is thinning your blood. B. There are a few signs you need to watch for after you are home. If you notice any of the followin. Increased severe hip pain. Some pain is expected especially when you exercise. 2. Increased swelling in your leg or knee; pain or swelling of the calf muscle in either lower leg. 3. Any fluid drainage from the incision. 4. Shortness of breath or chest pain. TEDs/Elastic Stockings: * The white elastic stockings help limit swelling and prevent blood clots from forming in your legs. The more you wear them, the more they work. * Wear them for six weeks. Prevention of Infection: * Take antibiotics one hour before any dental cleaning, dental work, urological procedure, gastrointestinal procedure or any invasive surgery in order to prevent your new joint from getting infected. * You may get the antibiotics from the doctor performing the procedure or we will call in a prescription to the pharmacy of your choice. Call the office for a prescription at least 2 days prior to your appointment. Things to Watch For: * Drainage from the incision site that occurs more than one week after your surgery. * Severely increased leg pain or swelling. * Increased redness at the incision site. * Fever above 101 degrees Fahrenheit. * Unusual chest pain or shortness of breath. * Unusual pain or burning with urination. Current Hospital Diet Patient's current hospital diet: Regular Diet Discharge Diet Recommended Diet: Regular Diet Procedures Procedures Performed: Right Total Hip Arthroplasty--Uncemented Pending Studies Studies pending at discharge: no Medical Emergencies . Who to Call and When: Medical Emergencies: If at any time you feel your situation is an emergency, please call 911 immediately. . Non-Emergent Contact Non-Emergency issues call your: Primary Care Provider, Surgeon Call Non-Emergent contact if: temperature is above 101, wound has increased drainage, wound has increased redness, wound has increased pain, you have any medication questions . "Provider Documentation" section prepared by Alexander Lovett PA-C. . [place] Drug Monitoring Program Search Results: no issues identified
== END 2018-01-30 16:45 | disposition home or self-care (01) | DRG 470 ==
LOC: C.ACU 05:53 → C.3E 06:50 → ENRESERV 10:08
PROVIDERS: ADMIT Physical Medicine & Rehabilitation Sports Medicine; ATTEND Physical Medicine & Rehabilitation Sports Medicine
PROC: 0SR90JA Replacement of Right Hip Joint with Synthetic Substitute, Uncemented, Open Approach (ICD-10-PCS; principal; 2018-01-29 08:00)
DX: M16.11 Unilateral primary osteoarthritis, right hip (principal); M87.9 Osteonecrosis, unspecified; Z86.73 Personal history of transient ischemic attack (TIA), and cerebral infarction without residual deficits; Z99.81 Dependence on supplemental oxygen; I48.0 Paroxysmal atrial fibrillation; G89.29 Other chronic pain; Z96.653 Presence of artificial knee joint, bilateral; Z88.5 Allergy status to narcotic agent; Z85.830 Personal history of malignant neoplasm of bone

== ENCOUNTER → 2018-03-11 | Outpatient (CLI) | payer OTHER ==
[~2018-03-11] MED LIST changes: -OXYC10SO PO; +OXYC1TAB3 PO; -Toprol XL PO; -VOLTAREN GEL TOP; +WARF2TAB PO
== END | disposition home or self-care (01) ==
LOC: C.RDSM 14:14
PROVIDERS: ATTEND Physical Medicine & Rehabilitation Sports Medicine
DX: Z96.641 Presence of right artificial hip joint (principal)

== ENCOUNTER 2021-03-09 06:52 | Observation (INO) ==
--- NOTE | 2021-02-23 12:27 | Anesthesiology Consultation ---
Date of Service February 23, 2021 Assessment & Plan (1) Encounter for pre-operative examination: Chart Review Chart Review: Acceptable Risk for Surgery (Pending preop Covid testing results) and Patient NOT seen in Pre Admission Testing Pt initially scheduled for surgery 11/24/20- rescheduled secondary to Covid surge Per nursing assessment 02/09/2021, patient denies any travel outside of [place]. No known Covid infection in the past 90 days. No known Covid positive contacts or Covid related symptoms. Patient aware of need for preop Covid testing and will follow up with surgeon = await results. PCP clearance request 11/08/2020 = " yes" patient is medically cleared for surgery. Right SHARDA 01/29/2018= Done under SAB at L3-4. History Surgery Operation Date: 03/09/21 07:15 Proposed Procedures p Left Total Shoulder Arthroplasty - Beau Mccallum MD Height/Weight Height: 5 ft 8 in Weight: 85.729 kg Allergies Allergy/AdvReac Type Severity Reaction Status Date / Time oxycodone [From OxyContin] Allergy Intermediate SEVERE Verified 02/09/21 12:49 HALLUCINATIONS Medications Home Medications Medication Instructions Recorded Confirmed Last Taken furosemide 40 mg PO Q2D 10/26/20 02/09/21 Unknown methadone 30 mg PO TID 10/26/20 02/09/21 Unknown spironolactone 100 mg PO Q2D 10/26/20 02/09/21 Unknown Past Medical History Medical History AVN (avascular necrosis of bone) Noted to most of his joints; currently left shoulder is worse - reason for surgery S/p right knee and hip replacements 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 No chemo or radiation- not a candidate Has had multiple lumbar spinal surgery. History of atrial fibrillation Remote/one time hx in 2011 during surgery - emergent DCCV requiring 2 shocks to return to SR- no issues since. [place] to be secondary to hypotension from surgery. Has seen cardio since- no longer needs to follow. On amiodarone x 4 weeks after incident. No recurrence- has had multiple surgeries since. Stroke 09/2015 no residual effects Past Family History Family History Other Past medical history not known due to adoption Past Surgical History Surgical History History of cardioversion Per review of [facility], emergent DCCV when pt went into Afib RVR during surgical procedure in 2011. Returned to after one shock. History of partial cystectomy 2011- partial bladder removal due to cancer History of right knee joint replacement History of total right hip arthroplasty Hx of colonoscopy and can no longer have since rectum was resected Hx of resection of rectum due to cancer Hx of spinal surgery multiple spinal surgeries, has had abcess on lumbar and had drained. hx of tail bone removed and then needed his rectum reconstructed. Social History Smoking Status: Never smoker Hx Alcohol Use: No Hx Substance Use: No substance use type: does not use Testing Laboratory Results Blood Type A Positive 02/21/21 09:20 Antibody Screen NEGATIVE 02/21/21 09:20 Laboratory Tests 02/21/21 02/21/21 02/21/21 09:16 09:16 09:16 WBC 7.91 Hgb 13.7 L Hct 41.0 L Plt Count 312 PT 10.6 INR 1.0 APTT 26.8 Sodium 138 Potassium 3.9 Chloride 105 Carbon Dioxide 28 BUN 15 Creatinine 1.00 Glucose 89 02/21/2021 = UA: Trace urine ketones Electrocardiogram Date: 11/01/20 Findings: + NSR @ (72) Normal EKG. Chest X-Ray Date: 11/01/20 Low lung volumes with stable mild chronic interstitial thickening. No acute process within the chest. Stable punctate calcified granuloma within the left lower lobe
--- NOTE | 2021-02-27 20:20 | History & Physical Report ---
Date of Service February 27, 2021 Assessment & Plan (1) Steroid-induced avascular necrosis of left shoulder: Postoperative prescription for oxycodone for breakthrough pain will be provided upon discharge from the hospital. Preoperative lab work was ordered today. Chest x-ray and EKG are up-to-date from his previously scheduled surgery. He understands the importance of attending physical therapy. He states there seems to have been some previous misunderstanding after his other total joint surgeries, and he had some difficulty with transport at that time. Postoperative followup appointment has been made with Ezekiel Harper for 03/10 at 2:30 p.m. and an appointment with on 03/24 at 1:30 for staple removal. The patient is aware of the COVID-19 risks associated with surgery. He is currently asymptomatic of any COVID-19 symptoms. He will obtain nasal swab testing 1 week prior to surgery. PDMP was checked and there are no concerning findings. Last prescriptions for morphine and methadone were 08/06/2020. History of Present Illness Chief Complaint: Left shoulder pain Primary Care Provider: Michael Schmidt MD This 55-year-old male presents today for chronic left shoulder pain. He is scheduled to undergo a left shoulder total shoulder arthroplasty on 03/09/2021. The patient was previously scheduled for this procedure on 11/24/2020. He was canceled secondary to COVID restrictions placed at the hospital due to lack of ability for admission. He is now ready to proceed. He notes continued pain in the shoulder and loss of motion. The patient has a history of AVN. Pain is worse with use. It is affecting his ADLs. He notes frequent night pain. Right hand dominant. No other complaints. Preoperative imaging has been obtained. 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 No chemo or radiation- not a candidate Has had multiple lumbar spinal surgery. History of atrial fibrillation Remote/one time hx in 2011 during surgery - emergent DCCV requiring 2 shocks to return to SR- no issues since. [place] to be secondary to hypotension from surgery. Has seen cardio since- no longer needs to follow. On amiodarone x 4 weeks after incident. No recurrence- has had multiple surgeries since. Stroke 09/2015 no residual effects Surgical History History of cardioversion Per review of [facility] records, emergent DCCV when pt went into Afib RVR during surgical procedure in 2011. Returned to SR after one shock. History of partial cystectomy 2011- partial bladder removal due to cancer History of right knee joint replacement History of total right hip arthroplasty Hx of colonoscopy and can no longer have since rectum was resected Hx of resection of rectum due to cancer Hx of spinal surgery multiple spinal surgeries, has had abcess on lumbar and had drained. hx of tail bone removed and then needed his rectum reconstructed. Family History Other Past medical history not known due to adoption Social History (Updated 02/27/21 @ 20:16 by Alexander Lovett PA-C) Smoking Status: Never smoker Second Hand Exposure: No; Hx Alcohol Use: No Hx Substance Use: No Preferred Language: Spanish Communication Ability: Effective Hearing Ability: Normal Feller Operator Required: No Beliefs That Will Affect Care: Quaker Quaker Beliefs: HOLINESS marital status: Current Living Situation: Spouse current occupational status: unemployed Feels Safe at Home: Yes Assistive Devices: Cane, Glasses and Walker Review of Systems Review of Systems: All systems reviewed & are unremarkable except as noted in HPI & below A total of 10 systems were reviewed. Physical Exam Physical Exam: Vitals: Height 171 cm, weight 94 kilograms, BMI 32.1. Temperature 36.7, BP 130/80, pulse 90, O2 sat 98% on room air, respiratory rate 16. General: Well-developed, well-nourished middle-aged white male in no acute distress. Sitting in a chair. Alert and oriented. Skin: Warm and dry with good turgor. No rashes or lesions. No ecchymosis or erythema. There is a large scar present over his sacrum. HEENT: Normocephalic, atraumatic. Eyes: PERRLA, EOMI. Nares and oropharynx exams deferred due to COVID precautions. Heart: RRR; no MGR. Lungs: Clear to auscultation bilaterally; no crackles, rhonchi or wheezing; good air movement. Abdomen: Mildly obese; bowel sounds present x4; soft, nontender. No organomegaly. No masses. Musculoskeletal: Left shoulder evaluation reveals no obvious asymmetry or deformity. He has limited motion. Forward flexion of 60 degrees, abduction of 70 degrees, external rotation of 10 degrees off neutral. Behind the back reach is to the back pocket. Full range of motion of his elbow. The patient has focal discomfort with palpation over the anterior and posterior glenohumeral joint. Crepitus is palpable with motion. Neurologic: Gross sensation is intact across the left arm by soft touch. Peripheral pulses are 2+. Results & Data Results & Data ([facility]) Diagnostic Findings Radiographic imaging obtained today of the left shoulder was reviewed by me. He has AVN with significant disease. He appears to have some loose bodies present within the joint.
[~2021-03-09 06:52] MED LIST changes: -AMOX500C3 PO; -FURO-85 PO; +LR 15ML/HR IV SCH; +LR 60ML/HR IV SCH; -METH10TA2 PO; -OXYC1TAB3 PO; -POLY335019 PO; +ROPIVACAINE 0.5% 5 MG/ML 30 ML VIAL ONE; -SPIR25TA PO; +TRANEXAMIC ACID 1,000 MG **IV Pre-op IV SCH; +TRANEXAMIC ACID 1,000 MG x 1 **For Topical Use TOP SCH; -WARF2TAB PO; +ceFAZolin 2000MG 2,000 MG/15 ML SYR IV SCH
--- NOTE | 2021-03-09 06:55 | History & Physical Bridge Note ---
Date of Service March 09, 2021 History & Physical Bridge Note I have examined the patient, reviewed the History & Physical and in the interval since the performance of the History & Physical I have noted the following changes of clinical significance:consent obtained/site verified/covid screen negative/discussed in detail sophie vs total shoulder arthroplasty depending on glenoid articular intraoperative findings. no changes noted
[2021-03-09] MEDS ORDERED: ONDANSETRON INJ 2 MG/ML 2 ML VIAL ONE (07:17)
[2021-03-09] MEDS ORDERED: NEOSTIGMINE METHYLSULFATE 5 MG/5 ML SYR ONE ×2 (07:17→11:28)
[2021-03-09] MEDS ORDERED: LIDOCAINE 2% 2 ML VIAL/AMP(20MG/ML) INFIL ONE (07:17)
[2021-03-09] MEDS ORDERED: GLYCOPYRROLATE 0.2 MG/ML VIAL ONE ×2 (07:17→07:29)
[2021-03-09] MEDS ORDERED: PROPOFOL IV EMULSION 10 MG/ML 20 ML VIAL IV ONE (07:17)
[2021-03-09] MEDS ORDERED: fentaNYL citrate 100 MCG/2 ML VIAL ONE (07:17)
[2021-03-09] MEDS ORDERED: MIDAZOLAM HCL 1 MG/ML 2ML VIAL ONE (07:17)
[2021-03-09] MEDS ORDERED: DEXAMETHASONE SOD INJ 4 MG/ML VIAL ONE (07:17)
[2021-03-09] MEDS ORDERED: ONDANSETRON INJ 2 MG/ML 2 ML VIAL IV PRN ×2 (08:10→12:02)
[2021-03-09] MEDS ORDERED: ATROPINE SULFATE 0.1 MG/ML 10ML SYR IV PRN (08:10)
[2021-03-09] MEDS ORDERED: ePHEDrine sulfate 50 MG/ML AMP IV PRN (08:10)
[2021-03-09] MEDS ORDERED: fentaNYL citrate 100 MCG/2 ML VIAL IV PRN (08:10)
[2021-03-09] MEDS ORDERED: BUPIVACAINE LIPOSOME 1.3% 266 MG/20 ML VIAL ONE (08:30)
--- NOTE | 2021-03-09 08:31 | History & Physical Bridge Note ---
Date of Service March 09, 2021 History & Physical Bridge Note I have examined the patient, reviewed the History & Physical and in the interval since the performance of the History & Physical I have noted the following changes of clinical significance:please see other bridge/went over surgical options as described and consent obtained. no changes noted
[2021-03-09] MEDS ORDERED: BUPIVACAINE 0.5 % 5 MG/1 ML PF 10ML VIAL ONE (08:35)
[2021-03-09] MEDS ORDERED: TXA 10% Non-IV Routes 100 MG/ML VIAL TOP ONE (08:42)
[2021-03-09] MEDS ORDERED: THROMBIN FOR SOLN 20000 UNIT KIT ONE (08:45)
[2021-03-09] MEDS ORDERED: BACITRACIN INJ 50,000 UNIT VIAL ONE (08:46)
[2021-03-09] MEDS ORDERED: ORTHO JOINT ANESTHETIC ONE (08:59)
[2021-03-09] MEDS ORDERED: PHENYLEPHRINE 100MCG/ML 5ML SYR ONE (09:34)
[2021-03-09] MEDS ORDERED: ePHEDrine sulfate 50 MG/ML SYR ONE (10:39)
--- NOTE | 2021-03-09 11:00 | Post Operative Brief Note ---
Immediate Post Op Note v1 Date of Surgery March 09, 2021 Pre & Post Diagnosis Operation Date: 03/09/21 08:50 Pre-Op Diagnosis: Left Shoulder Avascular Necrosis Post-Op Diagnosis: Left Shoulder Avascular Necrosis I identified the patient and participated in the time-out.: Yes Procedure Operation Date: 03/09/21 08:50 Actual Procedures p Left Shoulder Hemiarthroplasty--Uncemented(Left) - Beau Mccallum MD Surgeon Beau Mccallum MD Electrical Construction Project Manager Amira/Rachell Estimated Blood Loss 100 Findings Consistent with Post-Op Diagnosis
--- NOTE | 2021-03-09 11:17 | Operative Report ---
Post Operative Report Pre & Post Diagnosis Operation Date: 03/09/21 08:50 Pre-Op Diagnosis: Left Shoulder Avascular Necrosis Post-Op Diagnosis: Left Shoulder Avascular Necrosis I identified the patient and participated in the time-out.: Yes Procedure Operation Date: 03/09/21 08:50 Actual Procedures p Left Shoulder Hemiarthroplasty--Uncemented(Left) - Beau Mccallum MD Surgeon DEONTE Mccallum MD Mop Handle Assembler Amira/Rachell MÉNDEZ Estimated Blood Loss 100 Findings Consistent with Post-Op Diagnosis Specimens see operative report Drains none Complications none Disposition Accompanied Patient To Recovery: Yes Disposition: Recovery Room Indications This 55-year-old male presented to the office with complaints of intractable left shoulder pain. He had tried conservative care measures without improvement. He elected to proceed with surgical intervention after being educated about potential risks and outcomes. Preoperative imaging was obtained. Description of Procedure Patient was administered a regional block and then taken to the operating room where he was given general anesthesia. He was prepped and draped in the usual sterile fashion. Please see Dr. Mccallum's operative report for specifics of the procedure. I was present for the entire case from initial patient positioning through final wound closure. Assistance was provided in tissue retraction, hemostasis, trial implant placement, final implant placement, and final wound closure. Patient was taken to the recovery room in satisfactory condition. I attest to the content of the Intraoperative Record and any orders documented therein. Any exceptions are noted below.
--- NOTE | 2021-03-09 11:46 | XRay Report ---
SINGLE VIEW LEFT SHOULDER CLINICAL HISTORY: Status post arthroplasty. FINDINGS: An AP portable view of the left shoulder is obtained. The skeletal structures are osteopeni c. A left shoulder arthroplasty is in near-anatomic alignment. No acute fracture is identified. Produ ctive degenerative change is seen at the acromioclavicular joint. Subcutaneous gas, soft tissue swell ing, and skin clips are expected postoperative findings. Atelectasis is noted at the left lung base. IMPRESSION: A left shoulder arthroplasty is in near-anatomic alignment. No acute fracture is identifi ed. Electronically signed by: Victor Hugo Amato M.D. 03/09/2021 11:44 AM
--- NOTE | 2021-03-09 11:52 | Operative Report (OR) ---
DATE OF OPERATION: 03/09/2021 SURGEON: Beau Mccallum MD. ACID RETORT OPERATOR: Amira. SECOND ACID RETORT OPERATOR: Alexander Lovett PA-C. PREOPERATIVE DIAGNOSIS: Avascular necrosis, left humeral head with a large loose body. POSTOPERATIVE DIAGNOSIS: same PROCEDURE PERFORMED: Noncemented hemiarthroplasty, removal of loose body of the left shoulder. PERIOPERATIVE SITUATION: Medically cleared male who has AVN of his shoulder with a large loose body. He was worked up with x-ray, etc. At this point in time, options were discussed with him including doing nothing, doing a hemiarthroplasty and if needed a total shoulder replacement if the glenoid was worn. He states he understands, he signs the consent, understands the difference between a hemiarthroplasty and the total shoulder replacement. SUMMARY OF IMPLANTS: Size 10 Global Porocoat Advantage stem, size 48 x 18 standard head. DESCRIPTION OF PROCEDURE: The patient was appropriately identified, site verified, consent verified. Antibiotics confirmed as being given. The shoulder was examined revealing some tightness of the subscap, planus in the forward flexion and abduction and external rotation. There was a clicking in the joint. He was then sterilely placed in a beach chair position, modified with left upper extremity prepped and draped in usual routine fashion. Deltopectoral approach made. Cephalic vein protected and retracted with the deltoid. Clavipectoral fascia opened. Retractors placed taking care to protect the brachial plexus. The subscap was then tagged with #2 Ethibond. The biceps was then released and tagged with #2 Ethibond. The shoulder was then opened completely, the capsule released. The humeral circumflex vessels were cauterized. A large loose body was removed. The humeral head was resected and then revised once to appropriately get it balanced. The glenoid was then detail inspected. It was intact. The labrum was good. The articular cartilage was good, so it was elected just to do the hemiarthroplasty. The shoulder was then placed in the wound by extending it and externally rotating it and then serial reaming by hand carried up to 10 and a 10 broach seated into position. Additional sutures were placed for the rotator cuff repair later, 3 in total, with #2 FiberWire. Once the trial reduction was carried out, it was noted that the 48 head was better than the 52 head. The trial implants were removed, everything irrigated. TXA placed for 3 minutes and then the permanent impacted into position. Again, the sutures were placed around the stem as well as through the bone. This will augment the repair. Once this was impacted into position, the head was seated and the shoulder reduced. It had excellent stability in abduction, external rotation to 45-50 degrees with no issues. The subscap was then repaired starting at the top with a stitch placed in the supraspinatus, closing the lateral side of the rotator interval and then this suture was used to augment the 4 additional sutures that were already in the subscap and in the bone and this created a watertight repair to the subscap, could be abducted 30-40 degrees, externally rotated 30-40 degrees with no issues. Wound was irrigated one final time. The biceps was tenodesed in that position with those sutures and then the wound closed with 2-0 plain and stainless steel clips. Appropriate dressing applied. The patient was transferred to recovery room in satisfactory condition having tolerated the procedure well. The humeral head had a defect of approximately 1.5 cm squared, which was flattened and then a corresponding loose body that was mostly articular cartilage with some small fragment of bone. This was sent to pathology. The patient understands that ultimately this may need to be converted to a total shoulder replacement. However, as a nonweightbearing joint and with good articular cartilage, it was premature to replace the shoulder totally at this point. I attest to the content of the Intraoperative Record and any orders documented therein. Any exceptions are noted below. LAURENCE
--- NOTE | 2021-03-09 11:58 | Progress Notes ---
DATE: 03/09/2021 SUBJECTIVE: Postop check status post hemiarthroplasty of left shoulder for AVN, removal of loose body. Doing well in recovery room. Denies chest pain, shortness of breath, fever, chills, nausea, vomiting or headache. OBJECTIVE: Vital signs are stable. He is afebrile. Neurovascular check is limited by his Exparel supraclavicular block. Postop x-rays look excellent. ASSESSMENT: Doing well. Continue postoperative care pathway and prepare for discharge tomorrow.
[2021-03-09] MEDS ORDERED: ALUMINUM/MAGNESIUM SUSP 30 ML UDC PO PRN (12:02)
[2021-03-09] MEDS ORDERED: METOCLOPRAMIDE HCL INJ 5 MG/ML 2 ML VIAL IV PRN (12:02)
[2021-03-09] MEDS ORDERED: TAMSULOSIN HCL 0.4 MG CAP PO PRN (12:02)
[2021-03-09] MEDS ORDERED: HYDROmorphone INJ 0.5 MG/0.5 ML SYR IV PRN (12:02)
[2021-03-09] MEDS ORDERED: diphenhydrAMINE 50 MG/ML VIAL IV PRN (12:02)
[2021-03-09] MEDS ORDERED: oxyCODONE HCL IR 5 MG TAB (IMMEDIATE RELEASE) PO PRN (12:02)
[2021-03-09] MEDS ORDERED: bisacodyL 10 MG SUPP PR PRN (12:02)
[2021-03-09] MEDS ORDERED: MAGNESIUM HYDROXIDE SUSP 30 ML UDC PO PRN (12:02)
[2021-03-09] MEDS ORDERED: SODIUM CHLORIDE 0.9% 1000ML 1,000 ML IV SCH (12:02)
[2021-03-09] MEDS ORDERED: NALOXONE HCL 0.4 MG/1 ML VIAL/CARP IV PRN (12:02)
--- NOTE | 2021-03-09 12:07 | Discharge Summary (DS) ---
CHIEF COMPLAINT: Left shoulder pain. HISTORY OF PRESENT ILLNESS: Underwent elective hemiarthroplasty for avascular necrosis, removal of loose body of his left shoulder. Hospital course to date has been uneventful. If he does well overnight, he will be discharged tomorrow. History of present illness is a longstanding problem and has had this issue with AVN in other joints. Please see medication reconciliation sheet. Home meds Include spironolactone, chronic pain management with morphine and methadone, furosemide, amoxicillin. He has a long chronic medical history secondary to chordoma. PAST MEDICAL HISTORY: Remarkable for AVN, chordoma, history of atrial fibrillation, stroke. PAST SURGICAL HISTORY: Cardioversion, cystectomies, knee joint replacement, hip replacement, colonoscopies, cancer resection of his rectum, spinal surgery for chordoma. SOCIAL HISTORY: Reveals he is . Does not smoke, does not drink. He resides with his spouse. Feels safe at home. REVIEW OF SYSTEMS: Noncontributory. ASSESSMENT: Status post hemiarthroplasty, left shoulder for avascular necrosis and removal of loose body. Discharge to home tomorrow if he does well overnight.
--- NOTE | 2021-03-09 12:21 | Anesthesiology Progress Note ---
Date of Service March 09, 2021 Anesthesia Post Procedure Vital Signs Vital Signs: Temp Pulse Pulse Resp BP Pulse Ox 03/09/21 12:02 97.5 F L 62 16 101/69 96 03/09/21 11:55 68 12 112/71 96 03/09/21 11:45 97.5 F L 73 12 116/73 94 03/09/21 11:35 76 14 129/71 98 03/09/21 11:25 69 14 117/67 98 03/09/21 11:17 96.6 F L 82 20 132/68 98 03/09/21 08:36 71 20 113/71 93 03/09/21 07:28 98.1 F 75 18 121/80 96 Pain Intensity Left Shoulder: Pain Intensity: 6 Transfer of Care Handoff Completed per policy Notes Mental Status: alert / awake / arousable and participated in evaluation Patient Amnestic to Procedure: Yes Nausea / Vomiting: adequately controlled Pain: adequately controlled Airway Patency, RR, SpO2: stable & adequate BP & HR: stable & adequate Hydration State: stable & adequate Anesthetic Complications: no major complications apparent and Pt Satisfied with anesthetic care
[2021-03-09] MEDS: KETOROLAC 30 MG/ML VIAL IV SCH ×2 (12:54→18:37)
[2021-03-09] MEDS ORDERED: SPIRONOLACTONE 100 MG TAB PO SCH (13:00)
[2021-03-09] MEDS: ACETAMINOPHEN 500 MG TAB PO SCH ×2 (13:44→21:46)
[2021-03-09] MEDS ORDERED: VANCOMYCIN HCL 1,250 MG in SODIUM CHLORIDE 0.9% 250 ML IV SCH (14:00)
[2021-03-09] MEDS ORDERED: Nursing to Pharmacy Communication SCH (14:00)
[2021-03-09] MEDS ORDERED: METHADONE HCL 10 MG TAB PO SCH (14:00)
[2021-03-09] MEDS: ceFAZolin 2000MG 2,000 MG/15 ML SYR IV SCH (16:47)
[2021-03-09] MEDS: FERROUS GLUCONATE 324 MG TAB PO SCH (16:47)
[2021-03-09] MEDS: ASCORBIC ACID 500 MG TAB PO SCH (16:48)
[2021-03-09] MEDS: ASPIRIN/ALUM/MAGNES/CAL CARB 325 MG TAB PO SCH (20:13)
[2021-03-09] MEDS: METHADONE HCL 10 MG TAB PO SCH (20:13)
[2021-03-09] MEDS: DOCUSATE SODIUM 100 MG CAP PO SCH (20:13)
[2021-03-09] MEDS ORDERED: ASPIRIN/ALUM/MAGNES/CAL CARB 325 MG TAB PO SCH (21:00)
[2021-03-09] MEDS ORDERED: SENNA 8.6 MG TAB PO SCH (21:00)
[2021-03-10] MEDS: ceFAZolin 2000MG 2,000 MG/15 ML SYR IV SCH (00:56)
[2021-03-10] MEDS: KETOROLAC 30 MG/ML VIAL IV SCH ×2 (00:56→05:21)
[2021-03-10] MEDS: ACETAMINOPHEN 500 MG TAB PO SCH ×2 (05:18→13:29)
[2021-03-10] MEDS: ASCORBIC ACID 500 MG TAB PO SCH (07:46)
[2021-03-10] MEDS: FERROUS GLUCONATE 324 MG TAB PO SCH (07:46)
[2021-03-10] MEDS: ASPIRIN/ALUM/MAGNES/CAL CARB 325 MG TAB PO SCH (07:47)
[2021-03-10] MEDS: DOCUSATE SODIUM 100 MG CAP PO SCH (07:47)
[2021-03-10] MEDS: METHADONE HCL 10 MG TAB PO SCH (07:49)
--- NOTE | 2021-03-10 08:11 | Progress Notes ---
DATE: 03/10/2021 SUBJECTIVE: Postop day #1 status post left hemiarthroplasty of shoulder for AVN and loose body. At this point in time, he did well overnight. His block is starting to wear off. He has good motor function, median, radial, ulnar, suprascapular, and axillary nerves. His sensation is still a little bit tingly, but is progressing well and appropriately. OBJECTIVE: Vital signs are stable. He is afebrile. Eating and drinking well. ASSESSMENT AND PLAN: Doing well. Discharged to home today. Has outpatient PT appointment set up. Will need to leave roughly an hour before that.
[2021-03-10 08:17] LABS: Mean Corpuscular Hgb Conc 33.4 g/dL (32-36); Mean Platelet Volume 8.9 fL (7.4-10.4); Platelet Count 246 K/uL (130-400)
[2021-03-10 08:31] LABS: Basophils # (auto) 0.01 K/uL (0-0.2); Basophils % (auto) 0.1 %; Eosinophils # (auto) 0.02 K/uL (0-0.5); Eosinophils % (auto) 0.2 %; Hematocrit (blood only) 34.1 % (42-52); Hemoglobin 11.6 g/dL (14.0-18.0); Immature Granulocytes # (auto) 0.03 K/uL (0.00-0.02); Immature Granulocytes % (auto) 0.3 %; Lymphocytes # (auto) 1.94 K/uL (1.2-3.4); Lymphocytes % (auto) 17.6 %; Mean Corpuscular Hemoglobin 29.5 pg (25-34); Mean Corpuscular Volume 86.8 fL (80-100); Monocytes # (auto) 1.79 K/uL (0.11-0.59); Monocytes % (auto) 16.2 %; Neutrophils # (auto) 7.23 K/uL (1.4-6.5); Neutrophils % (auto) 65.6 %; RDW Coefficient of Variation 13.8 % (11.5-14.5); RDW Standard Deviation 44.1 fL (36.4-46.3); Red Blood Count 3.93 M/uL (4.7-6.1); White Blood Count 11.02 K/uL (4.8-10.8)
[2021-03-10 08:40] LABS: BUN Creatinine Ratio 23.5 (10-20); Calcium 8.6 mg/dl (8.5-10.1); Creatinine Clr Calc Pharmacy 112.7 ml/min; Est GFR (Non-African American) 100.9; Potassium 3.7 mmol/L (3.5-5.1)
[2021-03-10] MEDS ORDERED: FUROSEMIDE 40 MG TAB PO SCH (09:00)
[2021-03-10] MEDS ORDERED: MULTIVITAMIN TAB PO SCH (09:00)
--- NOTE | 2021-03-10 09:37 | Orthopedic Progress Note ---
Date of Service March 10, 2021 Assessment & Plan (1) S/P shoulder hemiarthroplasty: Patient's dressing was changed today by me. Written discharge instructions were provided. Prescription for Percocet was sent to his pharmacy. Patient has therapy at the office today at 230 and will be discharged this afternoon in time for his appointment. Continue wearing the sling at all times and keep his dressings dry. Follow-up in the office in 2 weeks for staple removal as scheduled. Admission and Anticipated Discharge Date Admission Date: March 09, 2021 Subjective Patient is seen in his room this morning. He was sleeping upon entry. Wakes easily. States his night was fair. He did not sleep well. He has minimal pain at this point. Denies any chest pain, shortness of breath, nausea, vomiting, or abdominal pain. Minimal shoulder pain at this point. No other complaints. He states the sensation in his hand and arm have returned. Review of Systems Review of Systems: Unchanged from yesterday. Physical Exam Physical Exam: General: Well-developed, well-nourished, middle-aged male, in no acute distress. Laying in his bed. Alert and oriented. Skin: Warm dry with good turgor. No rashes. Postoperative surgical dressings are in place. Upon removal, there is no active bleeding. Staple line is intact. Expected postoperative ecchymosis and edema. Musculoskeletal: Patient has intact motor function of his fingers and wrist. Left elbow and shoulder motion were not attempted. Neurologic: Gross sensation is intact across the forearm and hand. Radial, median, and ulnar nerve functions are intact. Peripheral pulses are 2+. Results & Data ([facility]) Vital Signs (Past 12 Hours) Vital Signs Temp Pulse Pulse Resp BP Pulse Ox 03/10/21 08:40 36.8 C 62 64 16 110/69 95 03/10/21 07:55 36.4 C L 64 16 110/69 95 03/10/21 03:34 36.5 C 68 14 103/65 92 03/09/21 22:40 36.3 C L 62 16 105/67 93 Laboratory Results CBC obtained today shows white count of 11.0, hemoglobin 11.6, hematocrit 34.1. PRP shows normal sodium and potassium. Normal chloride and CO2. BUN 18, creatinine 0.78. Glucose 102.
--- NOTE | 2021-03-10 14:31 | Operative Report ---
Post Operative Report Pre & Post Diagnosis Operation Date: 03/09/21 08:50 Pre-Op Diagnosis: Left Shoulder Avascular Necrosis Post-Op Diagnosis: Left Shoulder Avascular Necrosis I identified the patient and participated in the time-out.: Yes Procedure Operation Date: 03/09/21 08:50 Actual Procedures p Left Shoulder Hemiarthroplasty--Uncemented(Left) - Beau Mccallum MD Surgeon Beau Mccallum MD Cmo & President Amira/Rachell MÉNDEZ Estimated Blood Loss 100 Findings Consistent with Post-Op Diagnosis Specimens humeral head Anesthesia Type General Complications none Disposition Accompanied Patient To Recovery: Yes Disposition: Recovery Room Description of Procedure As per 's note I assisted in prepping and draping instruments handling, certain parts of the procedure and wound closure I attest to the content of the Intraoperative Record and any orders documented therein. Any exceptions are noted below.
== END 2021-03-10 14:20 | disposition home or self-care (01) ==
LOC: 3E 06:52 → ASU 06:52